=== PATIENT | female | born 1940 | race Caucasian/White ===

== ENCOUNTER 2019-01-04 17:08 | Emergency (ER) | payer MEDICARE, BC ==
--- NOTE | 2019-01-04 17:58 | ED ---
Adult Trauma - HPI Summary HPI Summary: Patient complains of mechanical fall from a height of 5 stairs today onto the ground with subsequent right shoulder pain, right buttock pain and laceration to back of head. Denies LOC, SWEET, vision change, N/V, AMS, amnesia. Ambulatory after fall with persistent pain. Patient on Plavix. - History of Current Complaint Chief Complaint: EDFall Stated Complaint: FELL DOWN STAIRS HURT SHOULDER PER PT Time Seen by Provider: 01/04/19 17:31 Hx Obtained From: Patient Mechanism of Injury: Fall Ambulatory at the Scene: Yes Loss of Consciousness: no loss of consciousness Onset/Duration: Started Hours Ago Onset of Pain: Hours Onset Severity: Moderate Current Severity: Severe Pain Intensity: 9 Pain Scale Used: 0-10 Numeric Location: Head, Extremities Character: Dull, Aching Aggravating Factor(s): Movement Alleviating Factor(s): Rest Associated Signs & Symptoms: Positive: Negative - Allergy/Home Medications Allergies/Adverse Reactions: Allergies Allergy/AdvReac Type Severity Reaction Status Date / Time No Known Allergies Allergy Verified 01/04/19 17:14 PMH/Surg Hx/FS Hx/Imm Hx Endocrine/Hematology History: Reports: Hx Anticoagulant Therapy Denies: Hx Diabetes Cardiovascular History: Reports: Hx Hypercholesterolemia, Hx Hypertension Denies: Hx Pacemaker/ICD Respiratory History: Reports: Hx Asthma, Hx Chronic Obstructive Pulmonary Disease (COPD) Comment Only: Hx Seasonal Allergies - denies GI History: Reports: Hx Gastroesophageal Reflux Disease, Other GI Disorders - acid reflux History: Denies: Hx Renal Disease Musculoskeletal History: Reports: Hx Back Problems - chronic low back pain Sensory History: Reports: Hx Cataracts, Hx Contacts or Glasses Denies: Hx Hearing Aid Opthamlomology History: Reports: Hx Cataracts, Hx Contacts or Glasses Neurological History: Reports: Other Neuro Impairments/Disorders - Stroke dx 05/09 Psychiatric History: Denies: Hx Panic Disorder - Cancer History Cancer Type, 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 Hx Anesthesia Reactions: No Infectious Disease History: No Infectious Disease History: Denies: Traveled Outside the [place] in Last 30 Days - Family History Known Family History: Positive: Non-Contributory Family History: Father of kidney failure - Social History Alcohol Use: None Hx Substance Use: No Substance Use Type: Reports: None Substance Use Comment - Amount & Last Used: oxycodone Hx Tobacco Use: Yes Smoking Status (MU): Former Smoker Type: Cigarettes Amount Used/How Often: 15 cigarettes/day Length of Time of Smoking/Using Tobacco: 40 YRS Have You Smoked in the Last Year: Yes Review of Systems Constitutional: Negative Eyes: Negative ENT: Negative Cardiovascular: Negative Respiratory: Negative Gastrointestinal: Negative Genitourinary: Negative Musculoskeletal: Other Skin: Negative Neurological: Negative Psychological: Normal All Other Systems Reviewed And Are Negative: Yes Physical Exam - Summary Physical Exam Summary: Laceration to posterior head. Full range of motion of neck and jaw. No indication of intraoral or facial trauma. No no bony point tenderness of C- spine, T-spine, L-spine. Patient will not move right upper extremity. Normal exam of left upper extremity. Normal exam of bilateral lower extremities. Abdomen soft nontender. Chest nontender. Lung sounds clear to auscultation bilaterally. Neuro exam normal. Triage Information Reviewed: Yes Vital Signs On Initial Exam: Initial Vitals Temp Pulse Resp BP Pulse Ox 98.1 F 84 14 101/52 89 01/04/19 17:09 01/04/19 17:09 01/04/19 17:09 01/04/19 17:09 01/04/19 17:09 Vital Signs Reviewed: Yes Appearance: Positive: Well-Appearing Skin: Positive: Warm Head/Face: Positive: Normal Head/Face Inspection Eyes: Positive: Normal ENT: Positive: Normal ENT inspection Dental: Negative: Dental Fracture @, Bleeding Neck: Positive: Supple Respiratory/Lung Sounds: Positive: Clear to Auscultation Cardiovascular: Positive: Normal Abdomen Description: Positive: Nontender Musculoskeletal: Positive: Normal Neurological: Positive: Normal Psychiatric: Positive: Normal AVPU Assessment: Alert - Randy Coma Scale Best Eye Response: 4 - Spontaneous Best Motor Response: 6 - Obeys Commands Best Verbal Response: 5 - Oriented Coma Scale Total: 15 Procedures - Laceration/Wound Repair 1 Location: head Description: Linear Length, Depth and Shape: 2cm x 1cm Betadine Prep?: No Irrigated w/ Saline (ccs): 200 Laceration/Wound Explored: clean Closure: Shaheen #__ - 3 Debridement: minimal Number of Sutures: 0 Layer Closure?: No Sterile Dressing Applied?: No Diagnostics - Vital Signs Vital Signs Temp Pulse Resp BP Pulse Ox 01/04/19 17:25 83 92 01/04/19 17:23 82 113/56 84 01/04/19 17:09 98.1 F 84 14 101/52 89 - Laboratory Lab Statement: Any lab studies that have been ordered have been reviewed, and results considered in the medical decision making process. Adult Trauma Course/Dx - Course Course Of Treatment: Patient complains of mechanical fall from a height of 5 stairs today onto the ground with subsequent right shoulder pain, right buttock pain and laceration to back of head. Denies LOC, SWEET, vision change, N/V, AMS, amnesia. Ambulatory after fall with persistent pain. Patient on Plavix. Vital signs within normal limits. CT brain unremarkable. Right shoulder x-ray negative for fracture. Lumbar spine negative for fracture. Right hip and pelvis negative for fracture. Right elbow negative for fracture. Laceration cleaned and stapled. - Diagnoses Provider Diagnoses: Fall Discharge - Sign-Out/Discharge Documenting (check all that apply): Patient Departure Patient Received Moderate/Deep Sedation with Procedure: No - Discharge Plan Condition: Stable Disposition: HOME Patient Education Materials: Fall Prevention for Older Adults (ED) Referrals: Frank Garcia MD [Primary Care Provider] - Yayo Salazar MD [Medical Doctor] - () Additional Instructions: Take Tylenol for pain. If pain persists more than 1 week follow-up with orthopedics Dr. Salazar for further evaluation. Return to the ED for any new or worsening symptoms. - Billing Disposition and Condition Condition: STABLE Disposition: Home - Attestation Statements Provider Attestation: I was available for consultation for this patient. I did not evaluate the patient or participate in any medical decision making or disposition decisions unless I am specifically named in the chart as having consulted on the patient. If I have consulted on the patient, please see my own ED note on the patient encounter. Richard Antonio MD
[2019-01-04] MEDS ORDERED: Acetaminophen TAB* 325 MG PO ONE (18:21)
[2019-01-04 21:01] VITALS: BP 104/58
--- OUTSIDE RECORDS SUMMARY | 2019-01-05 01:27 | XMS REPORT | Continuity of Care Document ---
:1940 External Reference #:[id number] Author Name Radha Todd Care Team Providers Name Role Phone Frank Garcia MD Primary Care Physician Unavailable Payers Date Identification Numbers Payment Provider Subscriber Policy Number: [id number] Medicare Analilia Kumar Marcus PayID: [id number] [address] [place] [address] Policy Number: [id number] [facility] Analilia J Marcus PayID: [id number] [address] [place] [address] Problems Active Problems Provider Date History of cerebrovascular accident without Jurgen Bowling M.D. Onset: 03/2019 residual deficits Carotid artery occlusion Jurgen Bowling M.D. Onset: 09/04/2018 Social History Type Date Description Comments Sex Female ETOH Use Denies alcohol use Tobacco Use Start: Unknown Light tobacco smoker (10 or fewer cigarettes/day) Smoking Status Reviewed: 12/12/18 Light tobacco smoker (10 or fewer cigarettes/day) Allergies, Adverse Reactions, Alerts Description No Known Drug Allergies Medications Active Medications SIG Qnty Indications Ordering Provider Date Oxycodone-Acetaminophen Take One Tablet Unknown By Mouth Every 6 5-325mg Tablets Hours as Needed For Pain Maximum Daily Dose 4 Fluticasone Propionate instill 2 sprays Unknown into each 50mcg/Act Suspension nostril once daily Cyclobenzaprine HCL Take One Tablet Unknown 10mg By Mouth Three Tablets Times A Day as Needed Spiriva Handihaler once a day Unknown 18mcg Capsules Levothyroxine Sodium 1 tab once a Frank Garcia MD 75mcg day po Tablets Clopidogrel Bisulfate 1 tab po once a Unknown 75mg day Tablets Alendronate Sodium 1 tab once a day Unknown 70mg Tablets Ra Aspirin Adult Low chew and swallow Unknown Strength 2 tablets by 81mg Chewtabs mouth twice a day Latanoprost once a day Unknown 0.005% Solution Lisinopril 1 tab once a day Unknown 20mg Tablets Ropinirole HCL once a day Unknown 0.25mg Tablets Proair HFA once a day as Unknown 108(90Base) needed mcg/Act Aerosol Atorvastatin Calcium take 1 tablet by Unknown 80mg mouth once daily Tablets Vital Signs Date Vital Result Comment 12/12/2018 1:29pm Height 60 inches 5'0" Weight 110.00 lb Heart Rate 85 /min BP Systolic 128 mmHg BP Diastolic 90 mmHg BMI (Body Mass Index) 21.5 kg/m2 09/04/2018 12:43pm Height 60 inches 5'0" Weight 110.38 lb Heart Rate 78 /min BP Systolic 160 mmHg BP Diastolic 102 mmHg BMI (Body Mass Index) 21.6 kg/m2 Procedures Date Code Description Status 07/10/2013 98407 ECHO Transthorasic Realtime 2D W Doppler & Color Flow Hosp Completed Encounters Type Date Location Provider Dx Diagnosis Office Visit 09/04/2018 [facility] Jurgen Bowling, I65.23 Occlusion and 1:00p [facility] stenosis of bilateral carotid arteries Z86.73 Prsnl hx of TIA (TIA), and cereb infrc w/o resid deficits Z79.02 custodial (current) use of antithrombotics/antiplatelets F17.210 Nicotine dependence, cigarettes, uncomplicated I10 Essential (primary) hypertension Office Visit 04/19/2018 [facility] Jurgen I65.23 Occlusion and 7:00a Joycelyn Bowling M.D. stenosis of bilateral carotid arteries I10 Essential (primary) hypertension E78.5 Hyperlipidemia, unspecified Z86.73 Prsnl hx of TIA (TIA), and cereb infrc w/o resid deficits Office Visit 04/19/2018 [facility] Tyrell I16.0 Hypertensive 12:15p Assoc,pc [facility]in [facility] urgency Hospitalists F17.210 Nicotine dependence, cigarettes, uncomplicated I65.22 Occlusion and stenosis of left carotid artery Z86.73 Prsnl hx of TIA (TIA), and cereb infrc w/o resid deficits Office Visit 07/10/2014 3:32p [facility] Yayo 780.79 [facility] Diego Fatigue Other Hospitalists 486 Pneumonia Organism Unspec 401.9 Hypertension Unspec Office Visit 07/09/2014 3:32p [facility] Yayo 780.79 [facility] Diego Fatigue Other Hospitalists 038.9 Septicemia Unspec 486 Pneumonia Organism Unspec 401.9 Hypertension Unspec Office Visit 07/08/2014 3:31p [place] Haresh Melendez, 780.79 [facility] N.P. Fatigue Other Hospitalists 486 Pneumonia Organism Unspec 038.9 Septicemia Unspec 401.9 Hypertension Unspec Office Visit 07/10/2013 1:54p [facility] Nicolas Morgan, 434.01 [facility] Juventino Thrombosis W/ Cerebral Infarc 433.10 Occlusion & Stenosis Carotid Artery W/O Cerebral Infarction 401.9 Hypertension Unspec Office Visit 07/10/2013 8:11a [facility] Olivia 434.01 Cerebral Assoc,lesley German D.O. Thrombosis W/ Hospitalists Cerebral Infarc 401.9 Hypertension Unspec 272.2 Hyperlipidemia Mixed 305.1 Tobacco Use Disorder Office Visit 07/09/2013 1:54p [place] Lizeth Morgan, 434.01 [facility] Thrombosis W/ Cerebral Infarc 433.10 Occlusion & Stenosis Carotid Artery W/O Cerebral Infarction 401.9 Hypertension Unspec Office Visit 07/09/2013 8:10a [facility] 434.01 Cerebral Assoc,lesley German D.O. Thrombosis W/ Hospitalists Cerebral Infarc 401.9 Hypertension Unspec 272.2 Hyperlipidemia Mixed 305.1 Tobacco Use Disorder Office Visit 07/08/2013 1:53p [facility] Nicolas Morgan, 434.01 [facility] Thrombosis W/ Cerebral Infarc 433.10 Occlusion & Stenosis Carotid Artery W/O Cerebral Infarction 401.9 Hypertension Unspec Office Visit 07/08/2013 8:08a [facility] 434.01 Cerebral Assoc,lesley German D.O. Thrombosis W/ Hospitalists Cerebral Infarc 401.9 Hypertension Unspec 272.2 Hyperlipidemia Mixed 305.1 Tobacco Use Disorder Plan of Treatment 12/12/2018 - Jur[facility] Bowling M.D.Z86.73 Personal history of transient ischemic attack (TIA), and cerFollow up:Follow up as needed
--- NOTE | 2019-01-05 10:45 | PN ---
Progress Note - Progress Note Date of Service: 01/05/19 Note: Called patient at 10:45 AM to discuss results Patient was made aware of sacral and scapular fractures She is given the name and phone number of our orthopedic clinic Discussed the importance of close follow-up and to call immediately to secure an appointment Patient states she understands and will call for an appointment Nothing further is needed
== END 2019-01-04 20:57 | disposition home or self-care (01) ==
LOC: ED 17:08
DX: S01.01XA Laceration without foreign body of scalp, initial encounter (principal); S42.101A Fracture of unspecified part of scapula, right shoulder, initial encounter for closed fracture; S32.10XA Unspecified fracture of sacrum, initial encounter for closed fracture; W10.9XXA Fall (on) (from) unspecified stairs and steps, initial encounter; Y92.9 Unspecified place or not applicable; M85.88 Other specified disorders of bone density and structure, other site; M16.11 Unilateral primary osteoarthritis, right hip; M51.37 Other intervertebral disc degeneration, lumbosacral region; M47.817 Spondylosis without myelopathy or radiculopathy, lumbosacral region; I70.0 Atherosclerosis of aorta; Z79.01 Long term (current) use of anticoagulants; I10 Essential (primary) hypertension; J44.9 Chronic obstructive pulmonary disease, unspecified; Z87.891 Personal history of nicotine dependence
CPT/HCPCS: 12001; 70450; 72110; 99283; A9270-GY

== ENCOUNTER 2019-04-02 21:50 | Emergency (ER) | payer MEDICARE, BC ==
[2019-04-02] MEDS ORDERED: NS 0.9% 1000 ML** 1,000 ML IV ONE (22:11)
--- NOTE | 2019-04-02 22:17 | ED ---
Complex/Multi-Sys Presentation - HPI Summary HPI Summary: Patient 78 y/o F w/ Hx of stroke who presents to [facility] with complaints of unwitnessed fall. She reports that she has had issues with falls for the past several months. Patient's son, with whom she lives with, left for work this morning, 04/02/19. When he returned home, he found the patient on the floor. Time of fall and the amount of time that the patient had been on the floor are unknown. Rescue lifted her up, patient was able to ambulate a few steps. Family was concerned that she had mild aphasia. It is reported that the patient has pain to her left side with movement. Patient notes chronic BLE edema but denies pain. Urinary Sx are denied. Vitals in room are pulse 84, o2 99 on RA, BP 156/ 91. Home medications and allergies are reviewed. - History Of Current Complaint Chief Complaint: EDFall Time Seen by Provider: 04/02/19 21:59 Hx Obtained From: Patient Onset/Duration: Still Present Timing: Constant Location: Pain At: - pain of left side with movement Aggravating Factor(s): pain of left side with movement Alleviating Factor(s): nothing Associated Signs And Symptoms: Positive: Edema - chronic BLE, Other - positive - aphasia, fall, pain of left side with movement; negative - BLE pain, urinary Sx - Allergies/Home Medications Allergies/Adverse Reactions: Allergies Allergy/AdvReac Type Severity Reaction Status Date / Time No Known Allergies Allergy Verified 04/02/19 22:00 Home Medications: Home Medications Allopurinol TAB* [Zyloprim 300 MG TAB*] 300 mg PO DAILY 04/02/19 [History Confirmed 04/02/19] Brimonidine P 0.1%(NF) [Alphagan P 0.1% (NF)] 1 drop OPHTHALMIC TID 04/02/19 [ History Confirmed 04/02/19] Budesonide/Formote 160/4.5(NF) [Symbicort 160/4.5 (NF)] 2 puff INH BID 04/02/19 [History Confirmed 04/02/19] Ergocalciferol CAP* [Drisdol CAP*] 50,000 units PO WEEKLY 04/02/19 [History Confirmed 04/02/19] Levothyroxine TAB* [Synthroid TAB*] 75 mcg PO DAILY 04/02/19 [History Confirmed 04/02/19] Lisinopril TAB* [Prinivil TAB*] 20 mg PO DAILY 04/02/19 [History Confirmed 04/02] Sertraline* [Zoloft*] 50 mg PO DAILY 04/02/19 [History Confirmed 04/02/19] PMH/Surg Hx/FS Hx/Imm Hx Endocrine/Hematology History: Reports: Hx Anticoagulant Therapy Denies: Hx Diabetes Cardiovascular History: Reports: Hx Hypercholesterolemia, Hx Hypertension Denies: Hx Pacemaker/ICD Respiratory History: Reports: Hx Asthma, Hx Chronic Obstructive Pulmonary Disease (COPD) Comment Only: Hx Seasonal Allergies - denies GI History: Reports: Hx Gastroesophageal Reflux Disease, Other GI Disorders - acid reflux History: Denies: Hx Renal Disease Musculoskeletal History: Reports: Hx Back Problems - chronic low back pain Sensory History: Reports: Hx Cataracts, Hx Contacts or Glasses Denies: Hx Hearing Aid Opthamlomology History: Reports: Hx Cataracts, Hx Contacts or Glasses Neurological History: Reports: Other Neuro Impairments/Disorders - Stroke dx 05/09 Psychiatric History: Denies: Hx Panic Disorder - Cancer History Cancer Type, 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 Hx Anesthesia Reactions: No Infectious Disease History: No Infectious Disease History: Denies: Traveled Outside the [place] in Last 30 Days - Family History Known Family History: Positive: Renal Disease - Father of kidney failure Family History: Father of kidney failure - Social History Alcohol Use: None Hx Substance Use: No Substance Use Type: Reports: None Substance Use Comment - Amount & Last Used: oxycodone Hx Tobacco Use: Yes Smoking Status (MU): Current Every Day Smoker Type: Cigarettes Amount Used/How Often: 1/2 PPD Length of Time of Smoking/Using Tobacco: 40 YRS Have You Smoked in the Last Year: Yes Review of Systems Positive: no symptoms reported - no urinary Sx Musculoskeletal: Other - positive - fall, pain of left side with movement; negative - BLE edema Positive: Edema - chronic BLE Neurological: Other - positive - aphasia All Other Systems Reviewed And Are Negative: Yes Physical Exam - Summary Physical Exam Summary: Appearance: Well-appearing, Well-nourished, lying in bed comfortably Skin: Warm, dry, no obvious rash Eyes: sclera anicteric, no conjunctival pallor ENT: mucous membranes dry, pharynx appears normal Neck: Supple, nontender, good ROM Respiratory: Clear to auscultation, no signs of respiratory distress Cardiovascular: Normal S1, S2. No murmurs. Normal distal pulses in tibial and radial bilaterally. Abdomen: Soft, nontender, normal active bowel sounds present Musculoskeletal: Normal, Strength/ROM Intact. Full ROM of upper and lower extremities, no sign of hip or other fracture. Neurological: A&Ox3, awake and alert, mentation is normal, speech is fluent and appropriate, no sign of aphasia or dysarthria Psychiatric: affect is normal, does not appear anxious or depressed Triage Information Reviewed: Yes Vital Signs On Initial Exam: Initial Vitals Temp Pulse Resp BP Pulse Ox 98 F 82 21 156/91 96 04/02/19 21:52 04/02/19 21:52 04/02/19 21:52 04/02/19 21:52 04/02/19 21:52 Vital Signs Reviewed: Yes Procedures - Sedation Patient Received Moderate/Deep Sedation with Procedure: No Diagnostics - Vital Signs Vital Signs Temp Pulse Resp BP Pulse Ox 04/02/19 21:52 98 F 82 21 156/91 96 - Laboratory Result Diagrams: 04/02/19 22:24 04/02/19 22:24 Lab Statement: Any lab studies that have been ordered have been reviewed, and results considered in the medical decision making process. - Radiology CXR Radiology Interpretation Completed By: ED Physician Summary of Radiographic Findings: No acute process, pending official report. - EKG 2231 Summary of EKG Findings: EKG showed NSR at 86 BPM, P waves, QRS complex, and T waves are within normal limits, T waves and intervals are normal, no ischemic changes, no STEMI. This is a normal EKG. This EKG was reviewed and interpreted by Dr. Paredes. Re-Evaluation - Re-Evaluation First Eval Re-Evaluation Time: 00:42 Change: Improved Comment: Pt doing well, was able to ambulate with a walker. She has not had any aphasia or any other focal neurologic deficit. There is no sign of significant injury consequent to the fall. Metabolic workup so far unrevealing, awaiting UA. No significant rhabdomyolysis. Complex Multi-Symp Course/Dx Course Of Treatment: Patient 78 y/o F w/ Hx of stroke who presents to [facility] with complaints of unwitnessed fall. She reports that she has had issues with falls for the past several months. Patient's son, with whom she lives with, left for work this morning, 04/02/19. When he returned home, he found the patient on the floor. Time of fall and the amount of time that the patient had been on the floor are unknown. Rescue lifted her up, patient was able to ambulate a few steps. Family was concerned that she had mild aphasia. It is reported that the patient has pain to her left side with movement. Patient notes chronic BLE edema but denies pain. Urinary Sx are denied. Musculoskeletal : Normal, Strength/ROM Intact. Full ROM of upper and lower extremities, no sign of hip or other fracture. Neurological: A&Ox3, awake and alert, mentation is normal, speech is fluent and appropriate, no sign of aphasia or dysarthria. EKG showed NSR at 86 BPM, P waves, QRS complex, and T waves are within normal limits, T waves and intervals are normal, no ischemic changes, no STEMI. This is a normal EKG. CXR showed no acute process. Bloodwork was obtained and WNL with exception of WBC 11.1, Hgb 11.3, absolute monos 1, BUN/creatinine ratio 21.8, total creatinine kinase 259. Trop was negative. During ED course, patient received fluids and requip tab, 0.5 mg PO. She was capable of ambulating with a walker. Patient was discharged to home and will follow up with PCP. - Diagnoses Provider Diagnoses: Fall Discharge ED - Sign-Out/Discharge Documenting (check all that apply): Patient Departure - discharge - Discharge Plan Condition: Good Disposition: HOME Patient Education Materials: Fall Prevention for Older Adults (ED) Referrals: Frank Garcia MD [Primary Care Provider] - As Soon As Possible - Billing Disposition and Condition Condition: GOOD Disposition: Home - Attestation Statements Document Initiated by Scribe: Yes Documenting Scribe: TOMASA HICKMAN Provider For Whom Scribe is Documenting (Include Credential): ASH PAREDES MD Scribe Attestation: TOMASA Rick, scribed for ASH PAREDES MD on 04/03/19 at 0558. Scribe Documentation Reviewed: Yes Provider Attestation: The documentation as recorded by the [email or web address] accurately reflects the service I personally performed and the decisions made by me, ASH PAREDES MD Status of Scribe Document: Viewed
[2019-04-02 22:30] LABS: ABS Basophils 0.2 10^3/ul (0-0.2); ABS Eosinophils 0.4 10^3/ul (0-0.6); ABS Lymphocytes 2.9 10^3/ul (1.0-4.8); ABS Neutrophils 6.6 10^3/ul (1.5-7.7); Eosinophil % 3.6 %; Hematocrit 36 % (35-47); Hemoglobin 11.3 g/dL (12.0-16.0); Lymphocyte % 26.5 %; Mean Corpuscular HGB Conc 32 g/dL (31-36); Mean Corpuscular Hemoglobin 30 pg (27-31); Mean Corpuscular Volume 95 fL (80-97); Mean Platelet Volume 8.5 fL (7.4-10.4); Platelet Count 261 10^3/uL (150-450); Red Blood Count 3.75 10^6 /uL (3.70-4.87); Red Cell Distribution Width 15 % (10-15); White Blood Count 11.1 10^3/uL (3.5-10.8)
[2019-04-02 22:49] LABS: ALT 12 U/L (7-52); AST 22 U/L (13-39); Albumin 3.9 g/dL (3.2-5.2); Albumin/Globulin Ratio 1.4 (1-3); Alkaline Phosphatase 85 U/L (34-104); Anion Gap 8 mmol/L (2-11); BUN/Creatinine Ratio 21.8 (8-20); Blood Urea Nitrogen 19 mg/dL (6-24); CO2 Carbon Dioxide 26 mmol/L (22-32); Calcium 9.3 mg/dL (8.6-10.3); Chloride 105 mmol/L (101-111); Creatine Kinase 259 U/L (10-223); EGFR African American 75.8 (>60); EGFR Non-African American 62.6 (>60); Globulin 2.8 g/dL (2-4); Glucose 96 mg/dL (70-100); Potassium 4.4 mmol/L (3.5-5.0); Sodium 139 mmol/L (135-145); Total Protein 6.7 g/dL (6.4-8.9)
[2019-04-02 22:54] LABS: Alcohol < 10 mg/dL (<10)
--- OUTSIDE RECORDS SUMMARY | 2019-04-02 22:57 | XMS REPORT | Summary of Care ---
:1940 Author Organization [facility] Address [address] [address] Care Team Providers Name Role Phone Frank Garcia Primary Care Provider Becki Lund [employer] Unavailable Kory Perry MD Unavailable Reason for Visit Reason Comments Transitional Care Management pt presents for TCM from [facility] 01/12/19-01/28/19 Encounter Details Date Type Department Care Team Description 02/09/2019 Office Visit [facility] Frank Garcia MD Pneumonia due to organism (Primary Dx); Practice [address] Vitamin D deficiency; [address] [place] [address] Hypothyroidism, unspecified type; [place] [address] Anemia, unspecified type; [phone] Cerebrovascular accident (CVA) due to stenosis of right carotid artery (HCC); (Fax) Essential hypertension; Hyperlipidemia LDL goal <70; Compression fracture of T11 vertebra (HCC) Allergies No Known Allergiesdocumented as of this encounter (statuses as of 02/21/2019) Medications Medication Sig Dispensed Refills Start Date End Date Status cyclobenzaprine Take 1 Tab by 45 Tab 1 05/22/2012 Active (FLEXERIL) 10 MG Oral Tab mouth THREE TIMES DAILY NEEDED for muscle spasm. OXYcodone-acetaminophen Take 1 Tab by 60 Tab 0 06/16/2012 Active (PERCOCET) 5-325 MG Oral mouth EVERY Tab EIGHT HOURS NEEDED for Pain. Additional information Patient taking differently: 1 Tab Oral Q6 HRS PRN, (No PRN reasons reported) , Reported on 08/18/2018 11:09 AM latanoprost (XALATAN) 0.005 % 1 Drop EVERY EVENING. 0 Active Ophthalmic Solution PROAIR HFA 108 (90 Base) inhale 2 puffs by mouth 8.5 g 5 05/06/2018 Active MCG/ACT Inhalation Aero Soln every 6 hours if needed for wheezing alendronate (FOSAMAX) 70 MG take 1 tablet by mouth 4 Tab 5 05/26/2018 Active Oral Tab every week on an empty stomach with 6-8 oz of water. No food / meds for 30 min. Remain Upright fluticasone (FLONASE) 50 instill 2 sprays into 48 g 3 08/22/2018 Active MCG/ACT Nasal Suspension each nostril once daily lisinopril (PRINIVIL, ZESTRIL) take 1 tablet by mouth 90 Tab 1 10/08/2018 Active 20 MG Oral TabIndications: once daily Hyperlipidemia LDL goal <70, Cerebrovascular accident (CVA) due to stenosis of right carotid artery (HCC), Essential hypertension ropinirole (REQUIP) 0.25 MG take 1 tablet by mouth at 90 Tab 1 10/08/2018 Active Oral TabIndications: bedtime Hyperlipidemia LDL goal <70, Cerebrovascular accident (CVA) due to stenosis of right carotid artery (HCC), Essential hypertension clopidogrel (PLAVIX) 75 MG Take 1 Tab by mouth 90 Tab 1 10/24/2018 Active Oral Tab DAILY. atorvastatin (LIPITOR) 80 MG take 1 tablet by mouth 90 Tab 3 11/11/2018 Active Oral Tab once daily SPIRIVA HANDIHALER 18 MCG inhale the contents of 30 Cap 5 11/18/2018 Active Inhalation CapIndications: one capsule in the Asthma in adult, mild handihaler once daily intermittent, uncomplicated levothyroxine (SYNTHROID) 50 take 1 tablet by mouth 90 Tab 0 12/09/2018 Active MCG Oral Tab once daily BEFORE BREAKFAST RA ASPIRIN ADULT LOW STRENGTH chew and swallow 2 100 Tab 3 12/16/2018 Active 81 MG Oral Chew Tab tablets by mouth twice a day allopurinol (ZYLOPRIM) 300 MG Take 1 Tab by mouth 30 Tab 5 12/19/2018 Active Oral Tab DAILY. sertraline (ZOLOFT) 50 MG Oral Take 1 Tab by mouth 30 Tab 1 12/19/2018 Active Tab DAILY. levothyroxine (SYNTHROID) 75 Take 1 Tab by mouth 30 Tab 2 02/09/2019 Active MCG Oral Tab BEFORE BREAKFAST. ergocalciferol (DRISDOL, Take 1 Cap by mouth EVERY 5 Cap 0 02/09/2019 Active CALCIFEROL, VITAMIN D) 57276 7 DAYS. units Oral Cap documented as of this encounter (statuses as of 02/21/2019) Active Problems Problem Noted Date Cerebrovascular accident (CVA) 11/11/2017 Closed displaced fracture of shaft of third metacarpal bone of left hand 06/26 Hyperlipidemia LDL goal <70 02/25/2015 Tobacco use 01/19/2011 Essential hypertension 12/21/2010 Back pain 12/21/2010 Insomnia 12/21/2010 Malignant neoplasm of skin 12/21/2010 Overview: Replaced inactive diagnosis documented as of this encounter (statuses as of 02/21/2019) Resolved Problems Problem Noted Date Resolved Date Chronic obstructive pulmonary disease with acute 10/05/2017 11/17/2017 exacerbation documented as of this encounter (statuses as of 02/21/2019) Immunizations Name Administration Dates Next Due Influenza (IM) Preservative Free 06/09/2014, 06/10/2013, 04/10/2012 Influenza Vaccine High Dose 04/25/2018, 03/04/2017, 07/02/2016, 03/07/2015 Influenza Virus Vaccine, Unspecified 04/25/2018, 06/09/2014, 06/10/2013, 04/10/2012 PNEUMOCOCCAL POLYSACCHARIDE VACCINE 02/18/2012 Pneumococcal Conjugate(13 Valent) 04/08/2015 documented as of this encounter Social History Tobacco Use Types Packs/Day Years Used Date Former Smoker Cigarettes 0.5 Quit: 04/26/2018 Smokeless Tobacco: Never Used Alcohol Use Drinks/Week oz/Week Comments No 2 Standard drinks or equivalent 2.0 quit 2016 Social Isolation Answer Date Recorded In a typical week, how many times do you More than three times a week 2018 talk on the phone with family, friends, or neighbors? How often do you get together with friends More than three times a week 08/18 or relatives? How often do you attend jehovah's witness or Not asked religion services? Do you belong to any clubs or Not asked organizations such as jehovah's witness groups, unions, fraternal or athletic groups, or school groups? How often do you attend meetings of the Not asked clubs or organizations you belong to? Are you now , , , 08/18/2018 , never or living with a partner? Physical Activity Answer Date Recorded On average, how many days per week do you engage in moderate to 0 days 2018 strenuous exercise (like walking fast, running, jogging, dancing, swimming, biking, or other activities that cause a light or heavy sweat)? On average, how many minutes do you engage in exercise at this 0 min 2018 level? Stress Answer Date Recorded Do you feel stress - tense, restless, nervous, or anxious, Not at all 2018 or unable to sleep at night because your mind is troubled all the time - these days? Financial Resource Strain Answer Date Recorded How hard is it for you to pay for the very basics like Not hard at all 2018 food, housing, medical care, and heating? Intimate Partner Violence Answer Date Recorded Within the last year, have you been afraid of your partner or No 08/18/2018 ex-partner? Within the last year, have you been humiliated or emotionally No 08/18/2018 abused in other ways by your partner or ex-partner? Within the last year, have you been kicked, hit, slapped, or No 08/18/2018 otherwise physically hurt by your partner or ex-partner? Within the last year, have you been raped or forced to have any No 08/18/2018 kind of sexual activity by your partner or ex-partner? Food Insecurity Answer Date Recorded Within the past 12 months, you worried that your food would Never true 2018 run out before you got money to buy more. Within the past 12 months, the food you bought just didn't Never true 2018 last and you didn't have money to get more. Transportation Needs Answer Date Recorded In the past 12 months, has lack of transportation kept you from No 08/18/2018 medical appointments or from getting medications? In the past 12 months, has lack of transportation kept you from No 08/18/2018 meetings, work, or getting things needed for daily living? Sex Assigned at Date Recorded Not on file Job Start Date Occupation Industry Not on file Not on file Not on file Travel History Travel Start Travel End No recent travel history available. documented as of this encounter Last Filed Vital Signs Vital Sign Reading Time Taken Comments Blood Pressure 120/68 02/09/2019 2:56 PM EDT Pulse 90 02/09/2019 2:56 PM EDT Temperature - - Respiratory Rate - - Oxygen Saturation 96% 02/09/2019 2:56 PM EDT Inhaled Oxygen Concentration - - Weight 51.1 kg (112 lb 9.6 oz) 02/09/2019 2:56 PM EDT Height 152.4 cm (5') 02/09/2019 2:56 PM EDT Body Mass Index 21.99 02/09/2019 2:56 PM EDT documented in this encounter Progress Notes Frank Garcia MD - 02/09/2019 3:00 PM EDT PATIENT: Analilia Velazquez : 1940 DATE OF SERVICE: 02/09/2019 CHIEF COMPLAINT: Chief Complaint Patient presents with Transitional Care Management pt presents for TCM from [facility] 01/12/19-01/28/19 Subjective HISTORY OF PRESENT ILLNESS: nAalilia Velazquez is a 78-y.o. female. In for hospital follow up. TCM call was not made. Admitted 01/07 and discharged 01/12 for in [facility] and sent to [facility] in [place] and sent home 01/28/19. Diagnosis was pneumonia with elevated WBC . However the story begins a few days before. She had fallen down the stairs and went to [facility] Showing right scapula fracture T11 compression fracture scalp lac She was sent home but then directed to [facility]. She had ortho and neurosurgery consults who said she could be managed at home but shewent back to ER on the for SOB Cbc showed wbc 25 She required oxygen 4 l decreased to 88% walking . The d/c summary from the rehabmentions the pneumonia RLL Labs from rehab note show b12 288 ferritin 181 Iron 39 TSH 23 HCT 24 guiac negative She was given Vit D weekly norvasc , she was alread on fosamax Her synthroid changed to 75mcg zestril changed to 10 from 20 siad K was hi 2- 3 percocet a day celebrex and metaxolone B vitamin given She can do stairs but not have life line yet Wbc had imroved . Past Medical History: Diagnosis Date Asthma Carotid stenosis left occluded right 60% but 2018 90% stented CVA (cerebral vascular accident) ([facility]) 06/2013 left inferior parietal, frontal , temproral ENVIRONMENTAL ALLERGIES GERD (gastroesophageal reflux disease) occasional Osteopenia 06/10.0 Pneumonia 07/11 RLS (restless legs syndrome) Skin cancer Spondylolisthesis lumbar stenosis Tobacco user Unspecified essential hypertension Family History Problem Relation Age of Onset Skin Cancer Mother Hypertension Mother Hypertension Father Kidney Father r/t hypertension No Known Problems Brother No Known Problems Son No Known Problems Son No Known Problems Son Current Outpatient Medications Medication Sig alendronate (FOSAMAX) 70 MG Oral Tab take 1 tablet by mouth every week on an empty stomach with 6-8 oz of water. No food / meds for 30 min. Remain Upright allopurinol (ZYLOPRIM) 300 MG Oral Tab Take 1 Tab by mouth DAILY. atorvastatin (LIPITOR) 80 MG Oral Tab take 1 tablet by mouth once daily clopidogrel (PLAVIX) 75 MG Oral Tab Take 1 Tab by mouth DAILY. cyclobenzaprine (FLEXERIL) 10 MG Oral Tab Take 1 Tab by mouth THREE TIMES DAILY NEEDED formuscle spasm. ergocalciferol (DRISDOL, CALCIFEROL, VITAMIN D) 47400 units Oral Cap Take 1 Cap by mouth EVERY 7 DAYS. fluticasone (FLONASE) 50 MCG/ACT Nasal Suspension instill 2 sprays into each nostril once daily latanoprost (XALATAN) 0.005 % Ophthalmic Solution 1 Drop EVERY EVENING. levothyroxine (SYNTHROID) 50 MCG Oral Tab take 1 tablet by mouth once daily BEFORE BREAKFAST levothyroxine (SYNTHROID) 75 MCG Oral Tab Take 1 Tab by mouth BEFORE BREAKFAST. lisinopril (PRINIVIL, ZESTRIL) 20 MG Oral Tab take 1 tablet by mouth once daily OXYcodone-acetaminophen (PERCOCET) 5-325 MG Oral Tab Take 1 Tab by mouth EVERY EIGHT HOURS ASNEEDED for Pain. (Patient taking differently: Take 1 Tab by mouth EVERY SIX HOURS NEEDED.) PROAIR HFA 108 (90 Base) MCG/ACT Inhalation Aero Soln inhale 2 puffs by mouth every 6 hours if needed for wheezing RA ASPIRIN ADULT LOW STRENGTH 81 MG Oral Chew Tab chew and swallow 2 tablets by mouth twice aday ropinirole (REQUIP) 0.25 MG Oral Tab take 1 tablet by mouth at bedtime sertraline (ZOLOFT) 50 MG Oral Tab Take 1 Tab by mouth DAILY. SPIRIVA HANDIHALER 18 MCG Inhalation Cap inhale the contents of one capsule in the handihaleronce daily No current facility-administered medications for this visit. No Known Allergies Social History Socioeconomic History Marital status: Spouse name: Not on file Number of children: 3 Years of education: Not on file Highest education level: Not on file Occupational History Not on file Social Needs Financial resource strain: Not hard at all Food insecurity: Worry: Never true Inability: Never true Transportation needs: Medical: No Non-medical: No Tobacco Use Smoking status: Former Smoker Packs/day: 0.50 Types: Cigarettes Last attempt to quit: 04/26/2018 Years since quittin.8 Smokeless tobacco: Never Used Substance and Sexual Activity Alcohol use: No Alcohol/week: 2.0 standard drinks Types: 2 Standard drinks or equivalent per week Comment: quit 2015 Drug use: No Sexual activity: Not Currently Lifestyle Physical activity: Days per week: 0 days Minutes per session: 0 min Stress: Not at all Relationships Social connections: Talks on phone: More than three times a week Gets together: More than three times a week Attends religion service: Not on file Active member of club or organization: Not on file Attends meetings of clubs or organizations: Not on file Relationship status: Intimate partner violence: Fear of current or ex partner: No Emotionally abused: No Physically abused: No Forced sexual activity: No Other Topics Concern Back Care Not Asked Bike Helmet Not Asked Blood Transfusions Not Asked Caffeine Concern Not Asked Exercise Not Asked Hobby Hazards Not Asked International Travel Not Asked Service Not Asked Occupational Exposure Not Asked Seat Belt Not Asked Self-Exams Not Asked Sleep Concern Not Asked Special Diet Not Asked Stress Concern Not Asked Weight Concern Not Asked Social History Narrative Retired from [employer] Currently living alone; [place] 04/2018 3 adult sons; 1 currently living with her REVIEW OF SYSTEMS: ROS Objective PHYSICAL EXAM: VITALS: BP 120/68 (BP Location: Left arm, Patient Position: Sitting) | Pulse 90 | Ht 5' (1.524 m) | Wt 112 lb 9.6 oz (51.1 kg) | SpO2 96% | BMI 21.99 kg/ m Body mass index is 21.99 kg/m. Physical Exam Vitals signs reviewed. Constitutional: General: She is not in acute distress. Appearance: She is not ill-appearing. Neck: Musculoskeletal: Normal range of motion. Cardiovascular: Rate and Rhythm: Normal rate. Pulmonary: Effort: Pulmonary effort is normal. No respiratory distress. Breath sounds: Normal breath sounds. Neurological: Comments: Non focal Psychiatric: Mood and Affect: Mood normal. ASSESSMENT / IMPRESSION: ICD-9-CM ICD-10-CM 1. Pneumonia due to organism will recheck x ray in follow up has been treated recheck wbc 486 J18.9XR CHEST 2 VIEW PA AND LATERAL (STANDARD) 2. Vitamin D deficiency on 50 K replacement now a week 268.9 E55.9 VITAMIN D 25 HYDROXY (GONZALEZ) 3. Hypothyroidism, unspecified type check labs 6 weeks 244.9 E03.9 THYROID STIMULATING HORMONE FREE T4 4. Anemia, unspecified type recheck HCT , not sure why the drop 285.9 D64.9 CBC WITH DIFFERENTIAL 5. Cerebrovascular accident (CVA) due to stenosis of right carotid artery (HCC) no celebrex 433.11 I63.231 6. Essential hypertension dose cut to 10 mg Will follow She did stop smoking 401.9 I10 7. Hyperlipidemia LDL goal <70 not sure dose 80 or 40 272.4 E78.5 8. Compression fracture of T11 vertebra (HCC) already on fosamax 805.2 S22.080A Plan Author: Frank Garcia MD 02/21/2019 20:19 documented in this encounter Plan of Treatment Date Type Specialty Care Team Description 03/23/2019 Office Visit Family Practice Frank Garcia MD [address] [place] [address] [phone] 08/26/2019 Chronic Care Management Family Practice 09/22/2019 Ancillary Procedure Radiology 09/22/2019 Office Visit Vascular Surgery Carlton Matthews MD [address] [address] Name Type Priority Associated Diagnoses Order Schedule THYROID STIMULATING Lab Routine Hypothyroidism, Expected: 02/09/2019 HORMONE unspecified type (Approximate), Expires: 02/10/2020 FREE T4 Lab Routine Hypothyroidism, Expected: 02/09/2019 unspecified type (Approximate), Expires: 02/10/2020 VITAMIN D 25 HYDROXY Lab Routine Vitamin D deficiency Expected: 02/09/2019 (GONZALEZ) (Approximate), Expires: 02/10/2020 Health Maintenance Due Date Last Done Comments ZOSTER IMMUNIZATION SERIES 1988 (1 of 2) INFLUENZA VACCINE (#1) 2019 04/25/2018, 03/04/2017, 07/02/2016, Additional history exists DEPRESSION SCREENING 08/19/2019 08/18/2018, 08/18/2018 FALL RISK ASSESSMENT 08/19/2019 08/18/2018, 08/18/2018 MEDICARE ANNUAL WELLNESS 08/19/2019 08/18/2018, 01/19/2016, VISIT 01/19/2016 OSTEOPOROSIS SCREENING 02/21/2026 02/22/2016 PNEUMOCOCCAL 65+YRS Completed 04/08/2015, 02/18/2012 HPV IMMUNIZATION SERIES Aged Out No longer eligible based on patient's age to complete this topic MENINGOCOCCAL VACCINE IMM Aged Out No longer eligible based on patient's age to complete this topic documented as of this encounter Goals Goal Patient Goal Associated Recent Patient-Stated? Author Type Problems Progress Blood Pressure Blood Pressure Essential 120/68 No Jose, < 140/90 hypertension (02/09/2019 MD Frank 2:56 PM EDT) Note: Hypertension Care Plan Based on the patient's clinical history and according to JNC 8 guidelines target blood pressure goal is less than 140/90. Based on the patient's last blood pressure of BP: 118/70 mmHg the patient is at at goal. As your provider, it is important that I advise you regarding: your current medications and help you with any challenges you may face taking your medications as directed (ex. instructions, cost, side effects, and interactions). Important lifestyle changes: exercise and smoking cessation your clinical goals and how you can achieve success: exercise plan and smoking cessation medication management: adjusted medications as appropriate patient education/self-management tools provided: Current self-management tools adequate To successfully manage my Hypertension I will: monitor my blood pressure daily, understanding that my goal is less than 140/ 90 per my healthcare provider's recommendation. I will schedule an appointment with my provider if consistent abnormal readings greater than 160/100. take medications every day as prescribed by my healthcare provider and if unable to take them I will discuss with my provider. monitor for symptoms of chest pain, chest tightness/pressure, irregular heartbeat, persistent dizziness, radiating arm pain, and neck or jaw pain. If any of these symptoms are noticed I will seek medical attention immediately by calling 911 exercise/walk 30 minutes 3 day(s) per week. If I experience chest pain, chest tightness, or shortness of breath, I will seek medical attention immediately. follow a diet rich in fruits, vegetables, and low-fat dairy products with reduced content of saturated & total fat. I will reduce my sodium intake daily. An example is the DASH diet. To obtain more information please refer to the DASH Eating Plan listed in Educational Resources. record my blood pressure results. M[facility]ridion is safe and secure way for you to do this in your medical record online. try to obtain an ideal body weight. My recent weight was Weight: 123 lb ( 55.792 kg). My weight loss goal for my next office visit is zero. limit alcohol consumption. For men two drinks per day and women one drink per day. if currently smoking, will discuss how to quit smoking with my healthcare provider and work towards quitting. Educational Resources: National Heart, Lung, & Blood [place] http://nhlbi.nih.gov/hbp/index.html The DASH Diet Eating Plan http://www.nhlbi.nih.gov/health/health-topics/ topics/dash/ Academy of Nutrition & DIetetics http://eatright.org National Smoking Cessation Site http://smokefree.gov Blood Pressure < 150/90 Blood Pressure 120/68 (02/09/2019 2:56 No Frank Garcia MD PM EDT) Note: This is an individualized treatment (blood pressure) goal for Analilia Velazquez: Displayed above (on the left) is your goal for blood pressure control. Your most recent blood pressure is also shown above, on the right. You should try to achieve blood pressures that are lower than your goal listed above (on the left). Smoking Cessation COPD No Frank Garcia MD Note: This is an individualized treatment (COPD) goal for Analilia Velazquez: Quit smoking immediately! Your provider has information and resources that may help you to quit. Depression screen (PHQ-9) Depression 5 (08/18/2018 10:47 AM No Frank Garcia MD total score < 5 EDT) Note: This is an individualized treatment (depression) goal for Analilia Velazquez: Displayed above is your goal for a depression screening (PHQ-9) score that would indicate good control of your depression. Lifestyle - Current Smoker Lifestyle Not on track (12/30/2013 Frank Dominique MD 1:10 PM EDT) Note: 1. Set a quit date 2. Use of medications-talk with doctor about current medications for nicotine replacement (patch, gum, lozenges, varenicline, buprupion) 3. Gradually reduce the number of cigarettes daily. This will help to eventually stop. 4. Connect to behavior counseling-[facility] Quit lines (WW-6-3197-876-687-7730 or [facility]- [phone]), stop smoking groups-[facility] or Lifestyle - Current Smoker Lifestyle Tobacco use No Frank Garcia MD Note: Smoking Cessation Plan Discussed smoking cessation with patient. Patient readiness to quit:yes Discussed smoking cessation plan according to AHRQ guidelines:counseled patient on the risks of tobacco use, advised patient to quit and offered support , discussed current use pattern, advised regarding importance of setting quit date and reason for relapse was not having anything to do in the winter My Quit Plan: My quit date is set for golf season Notify my friends, family, and co-workers about decision to quit. Will ask for their support and understanding Remove tobacco products from my environment. I will ask people not to smoke around me or in my home. I will anticipate challenges at the beginning and will try not to be discouraged. To remember the benefits of quitting such as improved health, feeling better about myself, saving money, etc. Reducing stressors and avoiding triggers are essential keys to my success Finding ways to distract myself when I have the urge to smoke such as taking a walk, reading, playing a board game, putting together a puzzle, etc. Taking medications as my healthcare provider has advised to help alleviate the urge to smoke. If I am unable to take the medication, I will discuss further with my healthcare provider. Recognize reasons for relapse in my past attempts. What did and did not work for me Consider connecting with group, individual, or telephone counseling Keep immunizations current Lifestyle No Warren Cuevas MD Note: This is an individualized lifestyle goal for Analilia Velazquez: Please be sure to keep up-to-date on recommended immunizations. For example, this would include a yearly influenza vaccine. Immunization status can be seen by looking at the Health Maintenance sections of your [facility], Plan of Care, and any After Visit Summaries. Keep a regular sleep schedule Lifestyle No Frank Gacria MD Note: This is an individualized lifestyle goal for Analilia Velazquez: Please maintain a regular sleep schedule. This may help with some symptoms of depression. Take all prescribed medications as directed Self-management No Frank Garcia MD Note: This is an individualized self-management goal for Analilia Velazquez: Please take all prescribed medications as directed. 1. Do not skip doses. If you cannot afford your medications, talk with your doctor. 2. Use a pill reminder system such as a pill box if needed. Your pharmacist can help you with this. 3. Contact your Pharmacy 5 days before your medication runs out. If you cannot take your medications for any reasons, talk with your doctor. 4. Please bring all of your medication bottles and inhalers (or a list of all your medications/inhalers) with you to every visit. Potential barriers to meeting all of your care plan goals will continue to be addressed on an ongoing basis. documented as of this encounter Procedures Procedure Name Priority Date/Time Associated Diagnosis Comments CBC WITH DIFFERENTIAL Routine 02/09/2019 4:10 Anemia, unspecified Results for this PM EDT type procedure are in the results section. documented in this encounter Results CBC WITH DIFFERENTIAL (02/09/2019 4:10 PM EDT) WBC Count 10.35 (H) 3.98 - 10.04 [facility] K/uL LABORATORY RBC Count 3.45 (L) 3.93 - 5.22 M/UL [facility] Hemoglobin 10.6 (L) 11.2 - 15.7 g/dL [facility] Hematocrit 35.1 34.1 - 44.9 % [facility] MCV 101.7 (H) 79.4 - 94.8 FL [facility] MCH 30.7 25.6 - 32.2 PG [facility] MCHC 30.2 (L) 32.2 - 35.5 g/dL [facility] Platelet Count 273 182 - 369 K/uL [facility] MPV 10.5 9.4 - 12.3 FL [facility] RDW 14.9 (H) 11.7 - 14.4 % [facility] Neutrophil % 57.5 34.0 - 71.1 % [facility] Lymphocyte % 30.7 19.3 - 51.7 % [facility] Monocyte % 5.8 4.7 - 12.5 % [facility] Eosinophil % 4.3 0.7 - 5.8 % [facility] Basophil % 1.3 (H) 0.1 - 1.2 % [facility] nRBC % 0.0 0.0 - 0.2 % [facility] Neutrophil # 5.96 1.56 - 6.13 K/UL [facility] Lymphocyte # 3.18 1.18 - 3.74 K/UL [facility] Monocyte # 0.60 0.24 - 0.86 K/UL [facility] Eosinophil # 0.44 (H) 0.04 - 0.36 K/UL [facility] Basophil # 0.13 (H) 0.01 - 0.08 K/UL [facility] Immature Gran % 0.4 0.0 - 0.4 % [facility] Immature Gran # 0.04 (H) 0.00 - 0.03 K/uL [facility] NRBC # 0.00 0.00 - 0.12 K/uL [facility] Specimen Blood - Blood specimen (specimen) Performing Organization Address City/State/Zipcode Phone Number [facility] [address] [place] [address] [phone] XR CHEST 2 VIEW PA AND LATERAL (STANDARD) (02/09/2019 4:00 PM EDT) Specimen Impressions Performed At 1. No acute cardiopulmonary disease is seen. Emphysematous change Urgency: Routine. This is a routine medical imaging report. Recommendation: No specific imaging recommendation. Signed by Maria Ines Begum MD, MHA, FCPS on 02/09/2019 5:39 PM Narrative Performed At Procedure(s): XR CHEST 2 VIEW PA AND LATERAL (STANDARD) Date of service: 02/09/2019 4:00 PM Provided clinical information: 78 years, Female, "fu pneumonia" Procedure and materials: Standard protocol. Procedure: CHEST 2 VIEWS Technique: PA and lateral views of the chest were acquired. Comparison: X-rays of 08/30/2014 Findings: There is no confluent pulmonary parenchymal opacity seen. Increase in lung volume with flattening of hemidiaphragm indicating emphysematous change with basal fibrotic change Cardioaortic silhouette appears unremarkable. There is normal pulmonary vascularity. The jacob are normal. No pleural effusion is seen. No pneumothorax is seen. Trachea midline. Mild endplate remodeling is seen of thoracic spine. No acute bony abnormality is seen. Procedure Note Interface, Rad Results - 02/09/2019 5:41 PM EDT Procedure(s): XR CHEST 2 VIEW PA AND LATERAL (STANDARD) Date of service: 02/09/2019 4:00 PM Provided clinical information: 78 years, Female, "fu pneumonia" Procedure and materials: Standard protocol. Procedure: CHEST 2 VIEWS Technique: PA and lateral views of the chest were acquired. Comparison: X-rays of 08/30/2014 Findings: There is no confluent pulmonary parenchymal opacity seen. Increase in lung volume with flattening of hemidiaphragm indicating emphysematous change with basal fibrotic change Cardioaortic silhouette appears unremarkable. There is normal pulmonary vascularity. The jacob are normal. No pleural effusion is seen. No pneumothorax is seen. Trachea midline. Mild endplate remodeling is seen of thoracic spine. No acute bony abnormality is seen. IMPRESSION 1. No acute cardiopulmonary disease is seen. Emphysematous change Urgency: Routine. This is a routine medical imaging report. Recommendation: No specific imaging recommendation. Signed by Maria Ines Begum MD, MHA, FCPS on 02/09/2019 5:39 PM documented in this encounter Visit Diagnoses Diagnosis Pneumonia due to organism - Primary Pneumonia due to other specified organism Vitamin D deficiency Unspecified vitamin D deficiency Hypothyroidism, unspecified type Anemia, unspecified type Cerebrovascular accident (CVA) due to stenosis of right carotid artery (HCC) Essential hypertension Unspecified essential hypertension Hyperlipidemia LDL goal <70 Other and unspecified hyperlipidemia Compression fracture of T11 vertebra (HCC) documented in this encounter documented as of this encounter
--- OUTSIDE RECORDS SUMMARY | 2019-04-02 22:57 | XMS REPORT | Summary of Care ---
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 States restless leg at night is worse. Dizziness pt started feeling dizzy last evening, last all night. Also felt dizzy this am. This is new. No nausea, states just came on suddenly. 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 Solution PROAIR HFA 108 (90 inhale 2 puffs by 8.5 g 5 05/06/20 Active Base) MCG/ACT mouth every 6 18 Inhalation Aero Soln hours if needed for wheezing alendronate (FOSAMAX) take 1 tablet by 4 Tab 5 05/26/20 Active 70 MG Oral Tab mouth every week 18 on an empty stomach with 6-8 oz of water. No food / meds for 30 min. Remain Upright fluticasone (FLONASE) instill 2 sprays 48 g 3 08/23/19 Active 50 MCG/ACT Nasal into each nostril 19 Suspension once daily lisinopril (PRINIVIL, take 1 tablet by 90 Tab 1 10/09/19 Active ZESTRIL) 20 MG Oral mouth once daily 19 TabIndications: Hyperlipidemia LDL goal <70, Cerebrovascular accident (CVA) due to stenosis of right carotid artery (HCC), Essential hypertension ropinirole (REQUIP) take 1 tablet by 90 Tab 1 10/09/19 Active 0.25 MG Oral mouth at bedtime 19 TabIndications: Hyperlipidemia LDL goal <70, Cerebrovascular accident (CVA) due to stenosis of right carotid artery (HCC), Essential hypertension clopidogrel (PLAVIX) 75 Take 1 Tab by 90 Tab 1 10/25/19 Active MG Oral Tab mouth DAILY. 19 atorvastatin (LIPITOR) take 1 tablet by 90 Tab 3 11/12/19 Active 80 MG Oral Tab mouth once daily 19 SPIRIVA HANDIHALER 18 inhale the 30 Cap 5 11/19/19 Active MCG Inhalation contents of one 19 CapIndications: Asthma capsule in the in adult, mild handihaler once intermittent, daily uncomplicated RA ASPIRIN ADULT LOW chew and swallow 2 100 Tab 3 12/17/19 Active STRENGTH 81 MG Oral tablets by mouth 19 Chew Tab twice a day allopurinol (ZYLOPRIM) Take 1 Tab by 30 Tab 5 12/20/19 Active 300 MG Oral Tab mouth DAILY. 19 levothyroxine Take 1 Tab by 30 Tab 2 02/10/20 Active (SYNTHROID) 75 MCG Oral mouth BEFORE 19 Tab BREAKFAST. sertraline (ZOLOFT) 50 take 1 tablet by 30 Tab 1 03/03/20 Active MG Oral Tab mouth once daily 19 ergocalciferol Take 1 Cap by 5 Cap 4 03/23/20 Active (DRISDOL, CALCIFEROL, mouth EVERY 7 19 VITAMIN D) 81344 units DAYS. Oral Cap levothyroxine take 1 tablet by 90 Tab 0 12/10/19 Discontinued (SYNTHROID) 50 MCG Oral mouth once daily 19 019 Tab BEFORE BREAKFAST ergocalciferol take 1 capsule by 5 Cap 4 03/06/20 Discontinued (DRISDOL, CALCIFEROL, mouth every 7 days 19 019 (Reorder) VITAMIN D) 32143 units Oral Cap documented as of this encounter (statuses as of 03/24/2019) Active Problems Problem Noted Date Cerebrovascular accident (CVA) 11/11/2017 Closed displaced fracture of shaft of third metacarpal bone of left hand 06/26 Hyperlipidemia LDL goal <70 02/25/2015 Tobacco use 01/19/2011 Essential hypertension 12/21/2010 Back pain 12/21/2010 Insomnia 12/21/2010 Malignant neoplasm of skin 12/21/2010 Overview: Replaced inactive diagnosis documented as of this encounter (statuses as of 03/24/2019) Resolved Problems Problem Noted Date Resolved Date Chronic obstructive pulmonary disease with acute 10/05/2017 11/17/2017 exacerbation documented as of this encounter (statuses as of 03/24/2019) Immunizations Name Administration Dates Next Due Influenza (IM) Preservative Free 06/09/2014, 06/10/2013, 04/10/2012 Influenza Vaccine 65 Yrs + 03/18/2019 Influenza Vaccine High Dose 04/25/2018, 03/04/2017, 07/02/2016, [...] or relatives? How often do you attend hindu or Not asked confucianist services? Do you belong to any clubs or Not asked organizations such as hindu groups, unions, fraternal or athletic groups, or [...] Sign Reading Time Taken Comments Blood Pressure 102/62 03/23/2019 10:44 AM EDT Pulse 100 03/23/2019 10:44 AM EDT Temperature - - Respiratory Rate - - Oxygen Saturation 98% 03/23/2019 10:44 AM EDT Inhaled Oxygen Concentration - - Weight 50.7 kg (111 lb 12.8 oz) 03/23/2019 10:44 AM EDT Height 152.4 cm (5') 03/23/2019 10:44 AM EDT Body Mass Index 21.83 03/23/2019 10:44 AM EDT documented in this encounter Patient Instructions Patient InstructionsFrank Garcia MD - 03/23/2019 10:20 AM EDTHold lisinopril and make follow up Use your cane documented in this encounter Progress Notes Frank Garcia MD - 03/23/2019 10:20 AM EDT PATIENT: Analilia Velazquez : 1940 DATE OF SERVICE: 03/23/2019 CHIEF COMPLAINT: Chief Complaint Patient presents with Follow Up pt presents for follow up from FX Medication Check pt wants to discuss increase of requip. States restless leg at night is worse. Dizziness pt started feeling dizzy last evening, last all night. Also felt dizzy this am. This is new. No nausea, states just came on suddenly. Subjective HISTORY OF PRESENT ILLNESS: Analilia Velazquez is a 78-y.o. female. Seen last week for a fall. They thought she had a fracture but official read not back. She has hadseveral falls lately In fact she fell today and was not going to come in but was convinced to come in Not every day. However she gets no warning. No CP, palpitation dizziness. However afterwords she feels imbalanced/dizzy for quite awhile. If she not grab onto something feel like will fall She has had a few strokes and carotid stenosis but most recent ultrasound had antegrade flow. She not report other stroke symptoms and no seizures. She does admit to a lot of anxiety. She also has been on a lot of pain medicine for spinal stenosisetc but doses not change recently. In fact she wants to increase the requp Past Medical History: Diagnosis Date Asthma Carotid stenosis left occluded right 60% but 2017 90% stented CVA (cerebral vascular accident) ([facility]) 06/2013 left inferior parietal, frontal , temproral [...] formuscle spasm. ergocalciferol (DRISDOL, CALCIFEROL, VITAMIN D) 64997 units Oral Cap Take 1 Cap by mouth EVERY 7 DAYS. fluticasone (FLONASE) 50 MCG/ACT Nasal Suspension instill 2 sprays into each nostril once daily latanoprost (XALATAN) 0.005 % Ophthalmic Solution 1 Drop EVERY EVENING. levothyroxine (SYNTHROID) 75 MCG Oral Tab Take [...] bedtime sertraline (ZOLOFT) 50 MG Oral Tab take 1 tablet by mouth once daily SPIRIVA HANDIHALER 18 MCG Inhalation Cap inhale [...] Last attempt to quit: 04/26/2018 Years since quittin.9 Smokeless tobacco: Never Used Substance and Sexual Activity Alcohol use: No Alcohol/week: 2.0 standard drinks Types: 2 Standard drinks or equivalent per week Comment: quit 2016 Drug use: No Sexual activity: Not Currently Lifestyle Physical activity: Days per week: 0 days Minutes per session: 0 min Stress: Not at all Relationships Social connections: Talks on phone: More than three times a week Gets together: More than three times a week Attends confucianist service: Not on file Active member of [...] Not Asked Social History Narrative Retired from [employer] Currently living alone; [employer] 04/2018 3 adult sons; 1 currently living with her REVIEW OF SYSTEMS: ROS Objective PHYSICAL EXAM: VITALS: BP 102/62 (BP Location: Left arm, Patient Position: Sitting) | Pulse 100 | Ht 5' (1.524 m) | Wt 111 lb 12.8 oz (50.7 kg) | SpO2 98% | BMI 21.83 kg/m Body mass index is 21.83 kg/m. Physical Exam Vitals signs reviewed. Constitutional: General: She is not in acute distress. Appearance: Ill appearance: ? HENT: Head: Atraumatic. Eyes: Comments: Pale Cardiovascular: Rate and Rhythm: Normal rate and regular rhythm. Heart sounds: Normal heart sounds. Pulmonary: Effort: Pulmonary effort is normal. Breath sounds: Normal breath sounds. Musculoskeletal: Right lower leg: No edema. Left lower leg: No edema. Neurological: Comments: Non focal EKG normal Orthostatics pulse not change but BP dropped 20 pts ASSESSMENT / IMPRESSION: ICD-9-CM ICD-10-CM 1. Pre-syncope no warning worrisome for rhythm issue but then the symptoms linger and her vitals normal so ? Anxious . Looks pale and orthostasis so hold SHAMA and recheck soon. Check labs and holter echo and may need to see cardiology 780.2 R55 ECHOCARDIOGRAM TTE HOLTER MONITOR 24-48 HOURS CBC WITH DIFFERENTIAL AMBULATORY 12 LEAD EKG (GLOBAL) 2. 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 Vitamin D deficiency 268.9 E55.9 VITAMIN D 25 HYDROXY ([facility]ON[facility]Z) 4. Hypothyroidism, unspecified type due for labs 244.9 E03.9 FREE T4 THYROID STIMULATING HORMONE Plan I dont see any real fracture except perhaps medial elbow Author: Frank Garcia MD 03/24/2019 23:32 documented in this encounter Plan of Treatment Date Type Specialty Care Team Description 04/06/2019 Orders Only Cardiology 04/13/2019 Office Visit Family Practice Frank Garcia MD [address] [place] [address] [phone] 08/26/2019 Chronic Care Management Family Practice 09/22/2019 Ancillary Procedure Radiology 09/22/2019 Office Visit Vascular Surgery Carlton Matthews MD [address] [place] [address] [phone] Name Type Priority Associated Diagnoses Order Schedule ECHOCARDIOGRAM TTE CV Lab Routine Cerebral infarction Expected: due to embolism of 03/23/2019, Expires: left middle cerebral 04/26/2020 artery (HCC) Pre-syncope HOLTER MONITOR 24-48 HOURS EKG Routine Pre-syncope Expected: 03/23/2019, Expires: 04/26/2020 AMBULATORY 12 LEAD EKG EKG Routine Pre-syncope Ordered: 03/24/2019 (GLOBAL) Health Maintenance Due Date Last Done Comments ZOSTER IMMUNIZATION SERIES 1988 (1 of 2) DEPRESSION SCREENING 08/19/2019 08/18/2018, 08/18/2018 FALL RISK ASSESSMENT 08/19/2019 08/18/2018, 08/18/2018 MEDICARE ANNUAL WELLNESS 08/19/2019 08/18/2018, 01/19/2016, VISIT 01/19/2016 OSTEOPOROSIS SCREENING 02/21/2026 02/22/2016 PNEUMOCOCCAL 65+YRS Completed 04/08/2015, 02/18/2012 INFLUENZA VACCINE Completed 03/18/2019, 04/25/2018, 03/04/2017, Additional history exists HPV IMMUNIZATION SERIES Aged Out No longer eligible based on patient's age to complete this topic MENINGOCOCCAL VACCINE IMM Aged Out No longer eligible based on patient's age to complete this topic documented as of this encounter Goals Goal Patient Goal Associated Recent Patient-Stated? Author Type Problems Progress Blood Pressure Blood Pressure Essential 102/62 No Jose, < 140/90 hypertension (03/23/2019 MD Frank 10:44 AM EDT) Note: Hypertension Care Plan Based on [...] Educational Resources. record my blood pressure results. eGjonatanrie is safe and secure way for you [...] Educational Resources: National Heart, Lung, & Blood [place] http://nhlbi.nih.gov/hbp/index.html The DASH Diet Eating Plan http://www.nhlbi.nih.gov/health/health-topics/ topics/dash/ Academy of Nutrition & DIetetics http://eatright.org National Smoking Cessation Site http://smokefree.gov Blood Pressure < 150/90 Blood Pressure 102/62 (03/23/2019 10:44 Frank Dominique MD AM EDT) Note: This is an individualized treatment [...] is an individualized treatment (COPD) goal for Aanlilia Kumar Marcus: Quit smoking immediately! Your provider has information and resources that may help you to quit. Depression screen (PHQ-9) Depression 5 (08/18/2018 10:47 AM Frank Dominique MD total score < 5 EDT) Note: [...] to eventually stop. 4. Connect to behavior counseling-[facility] Quit lines ([phone] or [facility]- [phone]), stop smoking groups-[facility] or Lifestyle - Current Smoker Lifestyle [...] This is an individualized lifestyle goal for Analiliaulisses Velazquez: Please be sure to keep up-to-date on recommended immunizations. For example, this would include a yearly influenza vaccine. Immunization status can be seen by looking at the Health Maintenance sections of your e[employer]uthrie, Plan of Care, and any After Visit Summaries. Keep a regular sleep schedule Lifestyle No Frank Garcia MD Note: This is an individualized lifestyle goal for Analilia José Velazquez: Please maintain a regular sleep schedule. This may help with some symptoms of depression. Take all prescribed medications as directed Self-management No Frank Garcia MD Note: This is an individualized self-management goal for Analilia J Marcus: Please take all prescribed medications as directed. [...] Associated Diagnosis Comments CBC WITH DIFFERENTIAL Routine 03/23/2019 12:20 Pre-syncope Results for this PM EDT procedure are in the results section. VITAMIN D 25 HYDROXY Routine 03/23/2019 12:20 Vitamin D deficiency Results for this (GONZALEZ) PM EDT procedure are in the results section. THYROID STIMULATING Routine 03/23/2019 12:20 Hypothyroidism, Results for this HORMONE PM EDT unspecified type procedure are in the results section. FREE T4 Routine 03/23/2019 12:20 Hypothyroidism, Results for this PM EDT unspecified type procedure are in the results section. documented in this encounter Results THYROID STIMULATING HORMONE (03/23/2019 12:20 PM EDT) TSH 3.32 0.47 - 4.68 uIu/ml [facility] Specimen Blood - Blood specimen (specimen) Performing Organization Address [facility] Phone Number [facility] [address] [place] [address] FREE T4 (03/23/2019 12:20 PM EDT) Free T4 1.4 0.8 - 2.2 NG/DL [facility] Specimen Blood - Blood specimen (specimen) Performing Organization Address [facility] Phone Number [facility] [address] [place] [address] [phone] VITAMIN D 25 HYDROXY (WILLIAMS) (03/23/2019 12:20 PM EDT) Vitamin D 25 HYDROXY 43.5 32.0 - 100.0 [facility] ng/ml LABORATORY Specimen Blood - Blood specimen (specimen) Narrative Performed At Interpretation: [facility] <20 ng/ml Deficiency 20-<30 ng/ml Insufficiency 32-100 ng/ml Sufficiency >100 ng/ml Potential Toxicity Performing Organization Address [facility] Phone Number [facility] [address] [place] [address] CBC WITH DIFFERENTIAL (03/23/2019 12:20 PM EDT) WBC Count 10.74 (H) 3.98 - 10.04 [facility] K/uL LABORATORY RBC Count 3.94 3.93 - 5.22 M/UL [facility] Hemoglobin 11.9 11.2 - 15.7 g/dL [facility] Hematocrit 39.4 34.1 - 44.9 % [facility] MCV 100.0 (H) 79.4 - 94.8 FL [facility] MCH 30.2 25.6 - 32.2 PG [facility] MCHC 30.2 (L) 32.2 - 35.5 g/dL [facility] Platelet Count 315 182 - 369 K/uL [facility] MPV 11.1 9.4 - 12.3 FL [facility] RDW 14.3 11.7 - 14.4 % [facility] Neutrophil % 59.5 34.0 - 71.1 % [facility] Lymphocyte % 26.8 19.3 - 51.7 % [facility] Monocyte % 6.9 4.7 - 12.5 % [facility] Eosinophil % 5.4 0.7 - 5.8 % [facility] Basophil % 1.1 0.1 - 1.2 % [facility] nRBC % 0.0 0.0 - 0.2 % [facility] Neutrophil # 6.39 (H) 1.56 - 6.13 K/UL [facility] Lymphocyte # 2.88 1.18 - 3.74 K/UL [facility] Monocyte # 0.74 0.24 - 0.86 K/UL [facility] Eosinophil # 0.58 (H) 0.04 - 0.36 K/UL [facility] Basophil # 0.12 (H) 0.01 - 0.08 K/UL [facility] Immature Gran % 0.3 0.0 - 0.4 % [facility] Immature Gran # 0.03 0.00 - 0.03 K/uL [facility] NRBC # 0.00 0.00 - 0.12 K/uL [facility] Specimen Blood - Blood specimen (specimen) Performing Organization Address City/State/Zipcode Phone Number [facility] [address] [place] [address] [phone] documented in this encounter Visit Diagnoses Diagnosis Pre-syncope - Primary Syncope and collapse 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
--- OUTSIDE RECORDS SUMMARY | 2019-04-02 22:57 | XMS REPORT | Summary of Care ---
:1940 Author Organization [facility] Address [address] [place] [address] Care Team Providers Name Role Phone Frank Garcia Primary Care Provider Becki Lund MANAGER CANCER Unavailable Kory Perry MD Unavailable Reason for Visit Reason Comments Fall fell yesterday, right wrist, some pain with movement Injection flu vaccine Encounter Details Date Type Department Care Team Description 03/18/2019 Office Visit Aleksandra Bridges, Fall from standing , initial encounter (Primary Dx); Practice MANAGER CANCER Arm injury, right, initial encounter [address] [place] [address] [place] [address] [phone] Allergies No Known Allergiesdocumented as of this encounter (statuses as of 03/18/2019) Medications Medication Sig Dispensed Refills Start Date [...] Tab 5 12/19/2018 Active Oral Tab DAILY. levothyroxine (SYNTHROID) 75 Take 1 Tab by mouth 30 Tab 2 02/09/2019 Active MCG Oral Tab BEFORE BREAKFAST. sertraline (ZOLOFT) 50 MG Oral take 1 tablet by mouth 30 Tab 1 03/03/2019 Active Tab once daily ergocalciferol (DRISDOL, take 1 capsule by mouth 5 Cap 4 03/06/2019 Active CALCIFEROL, VITAMIN D) 99895 every 7 days units Oral Cap documented as of this encounter (statuses as of 03/18/2019) Active Problems Problem Noted Date Cerebrovascular accident (CVA) 11/11/2017 Closed displaced fracture of shaft of third metacarpal bone of left hand 06/26 Hyperlipidemia LDL goal <70 02/25/2015 Tobacco use 01/19/2011 Essential hypertension 12/21/2010 Back pain 12/21/2010 Insomnia 12/21/2010 Malignant neoplasm of skin 12/21/2010 Overview: Replaced inactive diagnosis documented as of this encounter (statuses as of 03/18/2019) Resolved Problems Problem Noted Date Resolved Date Chronic obstructive pulmonary disease with acute 10/05/2017 11/17/2017 exacerbation documented as of this encounter (statuses as of 03/18/2019) Immunizations Name Administration Dates Next Due Influenza [...] or relatives? How often do you attend worship or Not asked synagogue services? Do you belong to any clubs or Not asked organizations such as worship groups, unions, fraternal or athletic groups, or [...] Sign Reading Time Taken Comments Blood Pressure 142/74 03/18/2019 2:18 PM EDT Pulse 93 03/18/2019 2:18 PM EDT Temperature - - Respiratory Rate 18 03/18/2019 2:18 PM EDT Oxygen Saturation 97% 03/18/2019 2:18 PM EDT Inhaled Oxygen Concentration - - Weight 51.9 kg (114 lb 6.4 oz) 03/18/2019 2:18 PM EDT Height 152.4 cm (5') 03/18/2019 2:18 PM EDT Body Mass Index 22.34 03/18/2019 2:18 PM EDT documented in this encounter Patient Instructions Patient InstructionsAleksandra Mixon NP - 03/18/2019 2:20 PM EDTUse arm brace that we provided. Ice the area. NSAIDS (motrin) for pain. If pain continues or worsens please return - you may need repeat xrays. I didn't see anything obvious on xray but will let you know if radiologist read sees anything. 4: 02 PM EDT documented in this encounter Progress Notes Aleksandra Mixon NP - 03/18/2019 2:20 PM EDT PATIENT: Analilia Velazquez : 1940 DATE OF SERVICE: 03/18/2019 CHIEF COMPLAINT: Chief Complaint Patient presents with Fall fell yesterday, right wrist, some pain with movement Injection flu vaccine Subjective HISTORY OF PRESENT ILLNESS: Analilia Velazquez is a 78-y.o. female. HPI Tripped on [facility] where the blocks were uneven, FOOSH injury to right wrist and hand, swelling along first knuckle and inner aspect of wrist with bruising. Hurts when grabbing things, putting pressure on the hand. Full ROM. CMS intact. She takes oxycodone for her back already. Has not iced or done other treatments. Did not hit head during fell. No other injuries. Past Medical History: Diagnosis Date Asthma Carotid stenosis left occluded right 60% but 2017 90% stented CVA (cerebral vascular accident) (HCC) 06/2013 left inferior parietal, frontal , temproral ENVIRONMENTAL ALLERGIES GERD (gastroesophageal reflux disease) occasional Osteopenia 2015 13/5.0 Pneumonia 07/11 RLS (restless legs syndrome) Skin [...] formuscle spasm. ergocalciferol (DRISDOL, CALCIFEROL, VITAMIN D) 89005 units Oral Cap take 1 capsule by mouth every 7 days fluticasone (FLONASE) 50 MCG/ACT Nasal Suspension instill [...] More than three times a week Attends synagogue service: Not on file Active member of [...] Not Asked Social History Narrative Retired from [employer] Currently living alone; Epifan[employer] 04/2018 3 adult sons; 1 currently living with her REVIEW OF SYSTEMS: Review of Systems Cardiovascular: Negative for chest pain and palpitations. Musculoskeletal: Positive for falls and joint pain. Negative for back pain and neck pain. Neurological: Negative for dizziness, loss of consciousness, weakness and headaches. Objective PHYSICAL EXAM: VITALS: BP 142/74 (BP Location: Left arm, Patient Position: Sitting) | Pulse 93 | Resp 18 | Ht 5' (1.524 m) | Wt 114 lb 6.4 oz (51.9 kg) | SpO2 97% | BMI 22.34 kg/m Body mass index is 22.34kg/m. Physical Exam Vitals signs and nursing note reviewed. Constitutional: General: She is not in acute distress. Appearance: Normal appearance. She is well-developed. Cardiovascular: Rate and Rhythm: Normal rate and regular rhythm. Heart sounds: Normal heart sounds. No murmur. No friction rub. No gallop. Pulmonary: Effort: Pulmonary effort is normal. No respiratory distress. Breath sounds: Normal breath sounds. Musculoskeletal: Right shoulder: She exhibits tenderness and swelling (bruising). She exhibits normal range of motion, no crepitus, no deformity, no laceration, no pain, no spasm, normal pulse and normal strength. Right elbow: Normal. Right wrist: She exhibits tenderness, bony tenderness and swelling. She exhibits normal range of motion, no effusion, no crepitus, no deformity and no laceration. Neurological: Mental Status: She is alert. Psychiatric: Mood and Affect: Mood and affect normal. Speech: Speech normal. Behavior: Behavior normal. Behavior is cooperative. ASSESSMENT / IMPRESSION: ICD-9-CM ICD-10-CM 1. Fall from standing, initial encounter E888.9 W19.XXXA 2. Arm injury, right, initial encounter 959.8 S49.91XA XR WRIST MIN 3 VIEWS RIGHT (STANDARD) XR SHOULDER MIN 2 VIEWS RIGHT (STANDARD) XR ELBOW MIN 3 VIEWS RIGHT (STANDARD) XR HAND MIN 3 VIEWS RIGHT (STANDARD) Plan 1. Arm injury, right, initial encounter - XR WRIST MIN 3 VIEWS RIGHT (STANDARD); Future - XR SHOULDER MIN 2 VIEWS RIGHT (STANDARD); Future - XR ELBOW MIN 3 VIEWS RIGHT (STANDARD); Future - XR HAND MIN 3 VIEWS RIGHT (STANDARD); Future 2. Fall from standing, initial encounter xrays done today - looks like non displaced distal clavicle fracture. Will treat with sling, ice and over the counter pain meds, although she wasn't having any pain except upon palpation. F/u in 1-[address] Garcia Author: Aleksandra Mixon NP 03/18/2019 18:56 documented in this encounter Plan of Treatment Date Type Specialty Care Team Description 03/23/2019 Office Visit Family Practice Frank Garcia MD [address] [place] [address] [phone] 08/26/2019 Chronic Care Management Family Practice 09/22/2019 Ancillary Procedure Radiology 09/22/2019 Office Visit Vascular Surgery Carlton Matthews MD [address] [place] [address] [phone] Name Type Priority Associated Diagnoses Date/Time XR WRIST MIN 3 VIEWS Imaging Routine Arm injury, right, 03/18/2019 3:06 PM RIGHT (STANDARD) initial encounter EDT XR SHOULDER MIN 2 Imaging Routine Arm injury, right, 03/18/2019 3:06 PM VIEWS RIGHT (STANDARD) initial encounter EDT XR ELBOW MIN 3 VIEWS Imaging Routine Arm injury, right, 03/18/2019 3:07 PM RIGHT (STANDARD) initial encounter EDT XR HAND MIN 3 VIEWS Imaging Routine Arm injury, right, 03/18/2019 3:07 PM RIGHT (STANDARD) initial encounter EDT Name Type Priority Associated Diagnoses Order Schedule XR WRIST MIN 3 VIEWS Imaging Routine Arm injury, right, Expected: 2018, RIGHT (STANDARD) initial encounter Expires: 03/17/2020 XR SHOULDER MIN 2 Imaging Routine Arm injury, right, Expected: 03/18/2019, VIEWS RIGHT (STANDARD) initial encounter Expires: 03/17/2020 XR ELBOW MIN 3 VIEWS Imaging Routine Arm injury, right, Expected: 2018, RIGHT (STANDARD) initial encounter Expires: 03/17/2020 XR HAND MIN 3 VIEWS Imaging Routine Arm injury, right, Expected: 03/18/2019 , RIGHT (STANDARD) initial encounter Expires: 03/17/2020 Health Maintenance Due Date Last Done Comments [...] Problems Progress Blood Pressure Blood Pressure Essential 142/74 No Jose, < 140/90 hypertension (03/18/2019 MD Frank 2:18 PM EDT) Note: Hypertension Care Plan Based [...] Educational Resources. record my blood pressure results. [employer] is safe and secure way for you [...] Educational Resources: National Heart, Lung, & Blood [place] http://nhlbi.nih.gov/hbp/index.html The DASH Diet Eating Plan http://www.nhlbi.nih.gov/health/health-topics/ topics/dash/ Academy of Nutrition & DIetetics http://eatright.org National Smoking Cessation Site http://smokefree.gov Blood Pressure < 150/90 Blood Pressure 142/74 (03/18/2019 2:18 Frank Dominique MD PM EDT) Note: This is an individualized treatment (blood pressure) goal for Analilia Velazquez: Displayed above (on the left) is your goal for blood pressure control. Your most recent blood pressure is also shown above, on the right. You should try to achieve blood pressures that are lower than your goal listed above (on the left). Smoking Cessation COPD No Frank aGrcia MD Note: This is an individualized treatment [...] to eventually stop. 4. Connect to behavior counseling-[facility] Quit lines ([phone] or [facility]- [phone]), stop smoking groups-[facility] or Lifestyle - Current Smoker [...] Keep a regular sleep schedule Lifestyle No Frnak Garcia MD Note: This is an individualized lifestyle goal for Analilia J Marcus: Please maintain a regular sleep schedule. This [...] ongoing basis. documented as of this encounter Results Not on filedocumented in this encounter Visit Diagnoses Diagnosis Fall from standing, initial encounter - Primary Arm injury, right, initial encounter documented in this encounter documented as of this encounter"
[2019-04-02 23:36] LABS: TSH (Thyroid Stimulating Horm) 2.31 mcIU/mL (0.34-5.60)
[2019-04-02] MEDS ORDERED: Ropinirole TAB* 0.5 MG TAB PO ONE (23:44)
[2019-04-03 02:18] VITALS: BP 117/51
[2019-04-03 02:27] LABS: Urine Appearance Clear; Urine Color Yellow
[2019-04-03 02:30] LABS: Urine Blood Negative (Negative); Urine Ketones Negative (Negative); Urine Protein Negative (Negative); Urine Urobilinogen Negative (Negative)
[2019-04-03 02:31] LABS: Urine Bilirubin Negative (Negative); Urine Glucose Negative (Negative); Urine Nitrite Negative (Negative)
== END 2019-04-03 07:50 | disposition home or self-care (01) ==
LOC: ED 21:50
DX: Z04.3 Encounter for examination and observation following other accident (principal); W19.XXXA Unspecified fall, initial encounter; Y92.009 Unspecified place in unspecified non-institutional (private) residence as the place of occurrence of the external cause; E78.00 Pure hypercholesterolemia, unspecified; I10 Essential (primary) hypertension; J44.9 Chronic obstructive pulmonary disease, unspecified; K21.9 Gastro-esophageal reflux disease without esophagitis; F17.210 Nicotine dependence, cigarettes, uncomplicated; Z85.820 Personal history of malignant melanoma of skin; Z79.899 Other long term (current) drug therapy
CPT/HCPCS: 36415; 71046; 80053; 80320; 81003; 82550; 83605; 83735; 84443; 84484; 85025; 93005; 96360; 96361; 99284; A9270-GY; G0480